=== PATIENT | male | born 1985 | race Caucasian/White ===

== ENCOUNTER → 2024-12-22 13:37 | Outpatient (REF) | payer BC, SELFPAY | LOC: RAD 13:37 | PROVIDERS: ATTENDING PHYSICIAN Physician Assistant | DX: G89.29 Other chronic pain (principal); M54.50 Low back pain, unspecified; Z87.39 Personal history of other diseases of the musculoskeletal system and connective tissue | CPT/HCPCS: 70030; 72148 ==